=== PATIENT | female | born 1950 | race Caucasian/White ===

== ENCOUNTER 2019-02-23 18:43 | Emergency (ER) | payer BC ==
[~2019-02-23] VITALS: Ht 165.1 cm; Wt 62.6 kg
[2019-02-23] MEDS ORDERED: ASPIR 8181 MG PO (19:39)
== END 2019-02-23 21:11 | disposition home or self-care (01) ==
LOC: ER 18:43
DX: N39.0 Urinary tract infection, site not specified (principal); R10.2 Pelvic and perineal pain

== ENCOUNTER 2019-02-26 14:30 | Emergency (ER) | payer BC ==
[~2019-02-26] VITALS: Ht 165.1 cm; Wt 62.6 kg
[~2019-02-26 14:30] MED LIST: ASPIR 8181 MG PO
[2019-02-26] MEDS ORDERED: METOPROLOL SUCC50 MG (15:16)
== END 2019-02-26 19:53 | disposition home or self-care (01) ==
LOC: ER 14:30
DX: B34.9 Viral infection, unspecified (principal); B96.0 Mycoplasma pneumoniae [M. pneumoniae] as the cause of diseases classified elsewhere